=== PATIENT | male | born 1995 | race Caucasian/White ===

== ENCOUNTER 2021-10-29 19:01 | Emergency (ER) | payer BC, SELFPAY ==
[2021-10-29] VITALS (7 sets, daily range): BP systolic 132–158; BP diastolic 78–80; PULSE 78–98; RESP 16–19; TEMP 36.8; O2SAT 96–100
--- NOTE | ~2021-10-29 | XR_ITS ---
EXAMINATION: XR chest 2V Exam Date/Time: 10/29/2021 19:23 CDT HISTORY: chest pain Comparison: None available. RESULT: Lines, tubes, and devices: None. Lungs and pleura: Clear. Cardiomediastinal silhouette: Normal cardiomediastinal silhouette. Other: No acute osseous or upper abdominal finding. IMPRESSION: No acute cardiopulmonary process. Reviewed, dictated and finalized at location K.
--- NOTE | 2021-10-29 19:21 | ECG_ITS ---
Measurements Intervals [place] Rate: 98 P: 59 MT: 137 QRS: 53 QRSD: 110 T: 50 QT: 344 QTc: 441 Interpretive Statements SINUS RHYTHM NORMAL ECG Electronically Signed On 10-29-2021 20:04:01 CDT by Dominic Lyman D.O.
--- NOTE | 2021-10-29 19:23 | ED.CHESTPAIN ---
HPI - Chest Pain General Chief Complaint: Chest Pain Stated Complaint: Chest pain Time Seen by Provider: 10/29/21 19:16 History of Present Illness HPI narrative: Patient is a healthy 26-year-old here for evaluation of chest pain today. Patient states he was seated on the couch when he noted a mild chest tightness developed gradually in the center of his chest. The pain lasted for about 20 minutes, did not radiate, was not associated with nausea, vomiting, or diaphoresis. The pain resolved after taking 325 aspirin. He reports a history of similar previous pain in the past, but has never been worked up for it. He does note that he has been feeling quite anxious recently and believes the pain is due to anxiety. Denies family history of heart disease. Denies recent travel, calf swelling, cough, shortness of breath, preceding illness, fevers. Related Data Allergies Allergy/AdvReac Type Severity Reaction Status Date / Time No Known Allergies Allergy Verified 10/29/21 19:08 Review of Systems Review of Systems: Gen: Denies fevers or chills Eyes: Denies eye pain or visual change ENT: Denies congestion Respiratory: Denies shortness of breath or cough CV: Reports chest pain. GI: Denies abdominal pain nausea, emesis or diarrhea denies burning, urgency, frequency or hematuria Musculoskeletal: Denies back pain or muscle pain Neuro: Denies numbness, tingling, weakness or focal weakness Skin: Denies rash Psych: Reports anxiety Except as documented, all other systems reviewed and negative All systems reviewed & are unremarkable except as noted in HPI and below Exam Narrative: APPEARANCE: No acute distress, nontoxic, resting in bed EYES: EOMI HEENT: Normocephalic, atraumatic, OMM RESPIRATORY: No respiratory distress Clear to auscultation bilaterally with no rhonchi wheezing or rales. CARDIOVASCULAR: 2+ radial pulses bilaterally. Regular rate and rhythm without murmurs rubs or gallops. ABDOMINAL: Soft, nontender, nondistended, no rebound or guarding MUSCULOSKELETAl: No calf swelling, tenderness, or redness. Moves all extremities. No clubbing, cyanosis or edema. NEURO: Awake and alert. Following commands, speech normal, no focal deficits SKIN: Warm, dry. No rashes lesions or abrasions PSYCHIATRIC: Anxious mood. Normal affect. Course Vital Signs Vital signs: Vital Signs Temperature 98.3 F 10/29/21 19:05 Pulse Rate 85 10/29/21 19:05 Respiratory Rate 16 10/29/21 19:05 Blood Pressure 158/80 H 10/29/21 19:05 Pulse Oximetry 100 10/29/21 19:05 Temperature 98.3 F 10/29/21 19:05 Pulse Rate 78 10/29/21 21:34 Respiratory Rate 18 10/29/21 21:34 Blood Pressure 132/78 10/29/21 21:34 Pulse Oximetry 99 10/29/21 21:34 MDM - Chest Pain MDM Narrative Medical decision making narrative: 26-year-old male here for evaluation of chest pain today. Vital signs normal aside from initial hypertension, resolved throughout ED stay. Heart lungs clear to auscultation. Exam without evidence of volume overload so doubt heart failure. EKG without signs of active ischemia. Given the timing of pain to ER presentation, single troponin was negative so doubt NSTEMI. Presentation not consistent with acute PE (Wells low risk, PERC negative), pneumothorax (not visualized on chest xr), thoracic aortic dissection, pericarditis, tamponade, pneumonia (no infectious symptoms, clear chest xr), myocarditis (no recent illness, neg trop). Heart score 0. Feel outpatient management is appropriate. Patient believes this is secondary to anxiety, treated with hydroxyzine in the ED and then 0.25 mg of Ativan. Patient does have a primary care provider that he will follow-up with for evaluation of his anxiety. We did discuss return precautions and he voiced understanding. Lab Data Result diagrams: 10/29/21 19:23 10/29/21 19:42 Labs: Lab Results 10/29/21 10/29/21 10/29/21 Range/Units 19:23 19:23 19:42 WBC 8.9 (
[2021-10-29 19:29] LABS: Basophils Absolute Auto 0.1 K/mm3 (0.0-0.1); Basophils Percent Auto 0.7 % (0.2-1.2); Eosinophils Absolute Auto 0.2 K/mm3 (0-0.3); Eosinophils Percent Auto 1.9 % (0-4.4); Hematocrit 46.9 % (42.0-52.0); Hemoglobin 16.2 g/dL (14.0-18.0); Immature Granulocyte Absolute 0.02 K/mm3 (0.00-0.031); Immature Granulocyte Percent A 0.2 % (0-0.5); Lymphocytes Absolute Auto 3.61 K/mm3 (0.9-3.2); Lymphocytes Percent Auto 40.7 % (18.3-44.2); Mean Corpuscular HGB Conc 34.5 g/dl (32-36); Mean Corpuscular Hemoglobin 29.3 pg (26-34); Mean Platelet Volume 9.9 fl (7.4-10.4); Monocytes Absolute Auto 0.7 K/mm3 (0.1-0.6); Neutrophils Absolute Auto 4.3 K/mm3 (1.3-6.7); Neutrophils Percent Auto 48.5 % (45.5-73.1); Platelet Count Result 262 k/mm3 (150-375); Red Blood Count 5.52 M/mm3 (4.6-6.20); Red Cell Distribution Width 12.7 % (11.5-14.5); White Blood Count 8.9 K/mm3 (4.5-10.0)
[2021-10-29 19:40] LABS: Prothrombin Time 12.4 Seconds (11.1-14.7)
[2021-10-29 19:41] LABS: Partial Thromboplastin Time 34.4 SECONDS (22.3-36.8)
[2021-10-29] MEDS: hydrOXYzine HCL 25 MG TABLET 50 MG PO (20:02)
[2021-10-29 20:05] LABS: Alanine Aminotransferase 35 U/L (6-50); Albumin Level 4.7 g/dL (3.5-5.1); Alkaline Phosphatase 120 U/L (38-126); Anion Gap 10 mmol/L (8-16); Aspartate Amino Transferase 34 U/L (17-59); Bilirubin,Total 0.3 mg/dL (0.2-1.3); Blood Urea Nitrogen 15 mg/dL (9-20); Carbon Dioxide 25 mmol/L (22-30); Chloride 101 mmol/L (98-107); Estimated CRCL calculation 138 ml/min; Estimated Glomerular Filt Rate > 60; Glucose 130 mg/dL (65-110); Lipase 89 U/L (23-300); Potassium 3.8 mmol/L (3.4-5.0); Sodium 136 mmol/L (137-145)
[2021-10-29 20:13] LABS: Troponin I 0.014 ng/mL (0.000-0.034)
[2021-10-29] MEDS: LORazepam (*CRX) 0.5 MG TABLET 0.25 MG PO (21:25)
== END 2021-10-29 21:35 | disposition home or self-care (01) ==
PROVIDERS: Physician Assistant; Emergency Provider Emergency Medicine
DX: F41.0 Panic disorder [episodic paroxysmal anxiety] (principal)
CPT/HCPCS: 36415; 71046; 80053; 83690; 84484; 85025; 85610; 85730; 93005; 99284; A9270